=== PATIENT | female | born 1985 | race Hispanic/Latino ===

== ENCOUNTER 2021-04-21 11:39 | Emergency (ER) | payer MEDICAID, SELFPAY ==
[2021-04-21 12:12] LABS: #Eosinphils 0.1 thou/uL (0.0-0.7); #Lymphocytes 2.8 thou/uL (1.20-3.40); #Monocytes 0.2 thou/uL (0.11-0.59); #Neutrophils 4.2 thou/uL (1.40-6.50); %Basophils 0.2 % (0.0-1.0); %Eosinophils 1.8 % (0.0-10.0); %Lymphocytes 38.1 % (21.0-51.0); %Monocytes 3.3 % (0.0-10.0); %Neutrophils 56.8 % (42.0-75.0); Hemoglobin 8.9 g/dL (12.0-16.0); Mean Corpuscular HGB CONC 30.5 g/dL (32.0-36.0); Mean Corpuscular Hemoglobin 17.7 pg (27.0-31.0); Mean Corpuscular Volume 58.1 fL (78.0-98.0); Mean Platelet Volume 4.7 fL (7.4-10.4); Platelet Count 399 thou/uL (130-400); RBC Distribution Width 21.4 % (11.5-14.5); White Blood Cell (WBC) Count 7.4 thou/uL (4.8-10.8)
[2021-04-21 12:22] LABS: Hypochromia SLIGHT = 6-15 cells (100X) (0-5/hpf); MDiff Complete? YES; Microcytosis MODERATE=15-30 cells (100X) (0-5/hpf); Ovalocytes SLIGHT = 2-5 cells (100X) (0-1/hpf); Platelet Morphology Comment Appears Adequate; Polychromasia SLIGHT = 2-3 cells (100X) (0-2/hpf); Reflex for Review?? YES; Target Cells SLIGHT = 2-5 cells (100X) (0-1/hpf)
[2021-04-21 12:24] LABS: ALT (SGPT) 21 U/L (8-55); AST (SGOT) 17 U/L (5-34); Albumin 3.9 g/dL (3.5-5.0); Alkaline Phosphatase 77 U/L (40-110); Anion Gap 11 mmol/L (10-20); BUN (Urea Nitrogen) 7 mg/dL (7.0-18.7); Bilirubin, Total 0.2 mg/dL (0.2-1.2); Calc. Creatinine Clearance 0 mL/min (70-130); Calcium 8.6 mg/dL (7.8-10.44); Carbon Dioxide 24 mmol/L (22-29); Chloride 106 mmol/L (98-107); Globulin 3.2 g/dL (2.4-3.5); Glucose 117 mg/dL (70-105); Potassium 3.8 mmol/L (3.5-5.1); Protein, Total 7.1 g/dL (6.0-8.3); Sodium 137 mmol/L (136-145)
[2021-04-21 13:07] LABS: BHCG - Serum Negative (NEGATIVE); Pregs Control Background? CLEAR/WHITE (CLR/WHITE); Pregs Control Bar Appear? YES (CONTROL BAR)
[2021-04-21] MEDS ORDERED: Meclizine HCl 25 MG TAB ONE (13:45)
[2021-04-21] MEDS ORDERED: Ondansetron ODT 8 MG TAB ONE (14:19)
== END 2021-04-21 15:10 | disposition home or self-care (01) ==
LOC: ERS 11:39
DX: D64.9 Anemia, unspecified (principal); R42 Dizziness and giddiness; F17.210 Nicotine dependence, cigarettes, uncomplicated
CPT/HCPCS: 36415; 80053; 84484; 84703; 85025; 85060; 99284; Q0162

== ENCOUNTER 2021-07-25 02:44 | Emergency (ER) | payer SELFPAY ==
[2021-07-25] MEDS ORDERED: Diazepam 10 MG/2 ML SYRINGE ONE (03:15)
== END 2021-07-25 04:53 | disposition home or self-care (01) ==
LOC: ERS 02:44
DX: R07.89 Other chest pain (principal); Z87.891 Personal history of nicotine dependence
CPT/HCPCS: 71045; 93005; 96372; J3360